=== PATIENT | male | born 1970 | race Caucasian/White ===

== ENCOUNTER → 2017-07-25 | Day surgery (SDC) | payer BC ==
[~2017-07-25] MED LIST: CEFAZOLIN SOD 2 GM/D5W 50ML 50 ML IV ONE; DEXAMETHASONE SOD PHOS INJ 4 MG/ML VIAL IV ONE; EPHEDRINE SULFATE INJ 50 MG/10 ML SYR IV ONE; EPINEPHRINE HCL INJ 1 MG/ML AMP ONE; FENTANYL CITRATE/PF 100MCG/2 ML INJ ONE; GLYCOPYRROLATE INJ 1MG/ 5 ML SYR IV ONE; KETOROLAC TROMETHAMINE 30 MG/ML VIAL IV ONE; LEXAPRO10 MG PO; LIDOCAINE 2%/ EPINEPHRINE 20ML MDV ONE; LIDOCAINE HCL 2% LOCAL INJ 5 ML SDV VIAL INJ ONE; MIDAZOLAM HCL 2 MG/2 ML VIAL ONE; NEOSTIGMINE 1 MG/ML 10ML VIAL IV ONE; ONDANSETRON HCL INJ 2 MG/ML VIAL IV ONE; PROPOFOL IV EMULSION 10 MG/ML 20 ML VIAL IV ONE; ROCURONIUM BROMIDE 10 MG/ML 5ML VIAL IV ONE; ROPIVACAINE 0.5% 5 MG/ML 30 ML SDV ONE; SEVOFLURANE INHAL SOLN 250 ML PEN BTL INH ONE
--- NOTE | 2017-07-26 10:54 | Operative Report ---
DATE OF PROCEDURE: July 25, 2017 PREOPERATIVE DIAGNOSIS: Right shoulder labral tear. POSTOPERATIVE DIAGNOSES 1. Right shoulder labral tear. 2. Right shoulder rotator cuff tear. OPERATIONS/PROCEDURES PERFORMED 1. Patient underwent a right shoulder examination under anesthesia. 2. Right shoulder arthroscopy. 3. Right shoulder arthroscopic debridement of a partial labral tear. 4. Right shoulder arthroscopic rotator cuff reconstruction. 5. Right shoulder arthroscopic subacromial decompression and acromioplasty. SOUND CONTROLLER: Ivette Archer. ANESTHESIA: General endotracheal intubation anesthesia. IV FLUIDS: Per anesthesia record. BRIEF DESCRIPTION OF OPERATIVE PROCEDURE: Mr. Rivas was taken to the operating room and placed in supine position on operating table. Following induction of general anesthesia as well as endotracheal intubation, the patient's right upper extremity was examined under anesthesia. He was found to have full passive range of motion of the shoulder joint. The patient's upper extremity was prepped and draped in standard surgical fashion. Standard posterolateral and anterior portals were created without difficulty. The scope was placed within the shoulder joint atraumatically. Examination of the glenohumeral articulation demonstrated no evidence of chondromalacia. There were no loose bodies in the shoulder joint. Examination of biceps tendon found that it was intact. It was firmly attached to the superior rim of the glenoid. There was slight fraying and partial tearing of the posterior-superior rim of the labrum. This was debrided. There was no instability of the labrum in this region. Examination of the rotator cuff tissue demonstrated a pinhole defect in the rotator cuff that was full thickness and a moderate-sized area of partial-thickness tearing that was greater than 50% of the insertion site of the rotator cuff. This area was elevated from the bone and thoroughly debrided. The rotator cuff insertion site was also debrided to a bleeding bony bed. The shoulder was then deflated of its sterile normal saline. The scope was placed in the subacromial space and significant bursal inflammation was encountered. A lateral portal was created with an outside-in technique. A bursectomy was performed. The rotator cuff injury was easily identified. A triple-loaded bio-absorbable suture anchor was inserted into the greater tuberosity humerus. The sutures from the anchor were woven through the rotator cuff tissue and the rotator cuff tissue was then advanced and tied firmly, reducing the rotator cuff injury to its normal insertion site. This resulted in complete reapproximation of the injury. The coracoacromial ligament was resected. An acromioplasty was performed. The shoulder was deflated of its normal saline. The arthroscopy portals were closed. Sterile dressings were applied. The patient was provided a shoulder immobilizer, awakened, and taken to postanesthesia care unit in stable condition. Ivette Archer acted as first aid trainer for this case and was necessary for the prepping and draping of the patient as well as the positioning of the arm and the passage of suture that allowed this case to be successful. Job#: [id number] HILLARY
== END | disposition home or self-care (01) ==
LOC: OR 07:24
PROVIDERS: ATTEND Specialist
DX: S46.091A Other injury of muscle(s) and tendon(s) of the rotator cuff of right shoulder, initial encounter (principal); S43.431A Superior glenoid labrum lesion of right shoulder, initial encounter; M19.011 Primary osteoarthritis, right shoulder; X58.XXXA Exposure to other specified factors, initial encounter; Z68.30 Body mass index [BMI] 30.0-30.9, adult
CPT/HCPCS: 29826; 29827; J0171; J1100; J1885; J2001 ×2; J2250; J2405; J2710; J2795

== ENCOUNTER 2017-10-29 06:58 | Outpatient (RCR) | payer BC ==
[~2017-10-29 06:58] MED LIST changes: -CEFAZOLIN SOD 2 GM/D5W 50ML 50 ML IV ONE; -DEXAMETHASONE SOD PHOS INJ 4 MG/ML VIAL IV ONE; -EPHEDRINE SULFATE INJ 50 MG/10 ML SYR IV ONE; -EPINEPHRINE HCL INJ 1 MG/ML AMP ONE; -FENTANYL CITRATE/PF 100MCG/2 ML INJ ONE; -GLYCOPYRROLATE INJ 1MG/ 5 ML SYR IV ONE; -KETOROLAC TROMETHAMINE 30 MG/ML VIAL IV ONE; -LIDOCAINE 2%/ EPINEPHRINE 20ML MDV ONE; -LIDOCAINE HCL 2% LOCAL INJ 5 ML SDV VIAL INJ ONE; -MIDAZOLAM HCL 2 MG/2 ML VIAL ONE; -NEOSTIGMINE 1 MG/ML 10ML VIAL IV ONE; -ONDANSETRON HCL INJ 2 MG/ML VIAL IV ONE; -PROPOFOL IV EMULSION 10 MG/ML 20 ML VIAL IV ONE; -ROCURONIUM BROMIDE 10 MG/ML 5ML VIAL IV ONE; -ROPIVACAINE 0.5% 5 MG/ML 30 ML SDV ONE; -SEVOFLURANE INHAL SOLN 250 ML PEN BTL INH ONE
== END 2017-11-03 ==
LOC: PT 06:58
PROVIDERS: ATTEND Specialist
DX: M75.101 Unspecified rotator cuff tear or rupture of right shoulder, not specified as traumatic (principal); M25.511 Pain in right shoulder; M25.611 Stiffness of right shoulder, not elsewhere classified; M62.81 Muscle weakness (generalized)

== ENCOUNTER 2017-11-27 07:00 | Outpatient (RCR) | payer BC | END 2017-12-03 | LOC: PT 07:00 | PROVIDERS: ATTEND Specialist | DX: M75.101 Unspecified rotator cuff tear or rupture of right shoulder, not specified as traumatic (principal); M25.511 Pain in right shoulder; M25.611 Stiffness of right shoulder, not elsewhere classified; M62.81 Muscle weakness (generalized) ==

== ENCOUNTER 2017-12-06 07:03 | Outpatient (RCR) | payer BC | END 2018-01-03 | LOC: PT 07:03 | PROVIDERS: ATTEND Specialist | DX: M75.101 Unspecified rotator cuff tear or rupture of right shoulder, not specified as traumatic (principal); M25.511 Pain in right shoulder; M25.611 Stiffness of right shoulder, not elsewhere classified; M62.81 Muscle weakness (generalized) ==